=== PATIENT | female | born 2005 | race Caucasian/White ===

== ENCOUNTER 2024-10-14 17:48 | Emergency (ER) | payer OTHER ==
[2024-10-14] MEDS: Acetaminophen/HYDROcodone 325-5 MG Tab PO ONE (18:37)
== END 2024-10-14 20:55 | disposition home or self-care (01) ==
LOC: JD.ED 17:48
DX: O99.891 Other specified diseases and conditions complicating pregnancy (principal); M54.42 Lumbago with sciatica, left side; Z3A.00 Weeks of gestation of pregnancy not specified
CPT/HCPCS: 36415; 76817; 84702; 99284; A9270